=== PATIENT | female | born 1960 | race Caucasian/White ===

== ENCOUNTER → 2017-04-15 | Outpatient (CLI) | payer OTHER | LOC: FIMAGING 10:48 | PROVIDERS: ATTEND Obstetrics & Gynecology Gynecology | DX: Z12.31 Encounter for screening mammogram for malignant neoplasm of breast (principal) | CPT/HCPCS: G0202 ==

== ENCOUNTER → 2017-10-14 | Outpatient (CLI) | payer OTHER | LOC: BMCIMAGING 09:18 | PROVIDERS: ATTEND Internal Medicine | DX: Z13.820 Encounter for screening for osteoporosis (principal); M85.89 Other specified disorders of bone density and structure, multiple sites; Z78.0 Asymptomatic menopausal state ==

== ENCOUNTER → 2017-12-25 | Outpatient (CLI) | payer OTHER | LOC: FIMAGING 14:17 | PROVIDERS: ATTEND Internal Medicine | DX: R22.2 Localized swelling, mass and lump, trunk (principal) ==

== ENCOUNTER → 2018-04-22 | Outpatient (CLI) | payer OTHER | LOC: FIMAGING 07:46 | PROVIDERS: ATTEND Obstetrics & Gynecology Gynecology | DX: Z12.31 Encounter for screening mammogram for malignant neoplasm of breast (principal) ==

== ENCOUNTER → 2019-05-01 | Outpatient (CLI) | payer OTHER | LOC: FIMAGING 15:05 ==